=== PATIENT | female | born 1980 | race Caucasian/White ===

== ENCOUNTER 2022-06-18 11:17 | Emergency (ER) | payer BC, SELFPAY ==
[2022-06-18 11:18] VITALS: BP 120/81; PULSE 136; RESP 15; TEMP 36.6; O2SAT 97; BMI 25.8
[2022-06-18 11:21] VITALS: BP 120/80; PULSE 128; RESP 16; TEMP 36.6; O2SAT 98
[2022-06-18 11:56] LABS: Color, Urine Yellow (Yellow); Glucose, Dipstick Normal (Normal); Ketone-Dipstick 5 mg/dl (Negative); Leukocyte Esterase-Dipstick 500 /ul (Negative); Nitrite-Dipstick Negative (Negative); Occult Blood-Urine 50 /ul (Negative); Protein-Dipstick 30 mg/dl (Negative); Specific Gravity, Urine 1.025 (1.002-1.030); Urine Bilirubin Dipstick Negative (Negative); Urine Clarity Clear (Clear); Urine Urobilinogen Normal (Normal)
[2022-06-18 12:08] LABS: Bacteria 1+ /hpf (None Seen); Mucous, Urine 1+ /hpf (<or=2+); Red Blood Cells-Urine 0-5 SEEN /hpf (0-5); Squamous Epithelial Cells - UA 0-5 SEEN /hpf (5-10); White Blood Cells 5-10 SEEN /hpf (0-5)
[2022-06-18 12:09] LABS: Internal QC Validated? YES +Cl - CLEAR BKGD; Pregnancy, Urine Negative Negative
[2022-06-18 12:21] VITALS: BP 118/78; PULSE 125; RESP 16; TEMP 36.6; O2SAT 98
--- NOTE | 2022-06-18 12:31 | CT_ITS ---
STUDY: CT ABDOMEN AND PELVIS WITHOUT CONTRAST REASON FOR EXAM: Female, 42 years old. right flank pain with history of kidney stones. known right ovarian cysts RADIATION DOSAGE (If Supplied By Facility): CTDIvol = ( 7.47 ) mGy, DLP = ( 388.24 ) mGycm TECHNIQUE: Transaxial images were obtained from the dome of the diaphragm to the symphysis pubis without oral contrast, and without intravenous contrast. Sagittal and coronal images were reconstructed. Individualized dose optimization techniques were used for this CT. COMPARISON: None. FINDINGS: The visualized lung bases are unremarkable. The visualized portions of the heart are within normal limits. Normal liver. Normal gallbladder and extrahepatic biliary system. Normal spleen. Normal pancreas. Normal bilateral adrenal glands. A 3.5 mm calyceal stone is present upper pole of the right kidney. There are 2 additional punctate calyceal stones in the right upper pole as well. No hydronephrosis or hydroureter is present. Normal left kidney. Normal visualized stomach. Normal small intestine. Normal colon. The appendix is visualized and appears normal. Normal abdominal aorta. Normal inferior vena cava. Normal retroperitoneum. Normal urinary bladder. Normal visualized uterus. There are 2 moderately enlarged right ovarian follicular cysts measuring 2.47 cm and 3.04 cm respectively. There is a small umbilical hernia containing fat. Unremarkable osseous structures. CT/Abdomen/Pelvis without Cont IMPRESSION: * Several nonobstructing stones of the right kidney * 2 moderately enlarged right ovarian follicular cysts measuring 2.47 cm and 3.04 cm respectively. Electronically Signed: Juan Hale MD at 13:28 EST ,
--- NOTE | 2022-06-18 12:43 | ED.VIS.FEGU ---
HPI HPI - Female History of Present Illness Chief Complaint: Complaint Narrative Narrative: 42-year-old female with recurrent UTIs presenting with concern for UTI. She states that she has had a UTI with sepsis and for and had acute renal failure in the past. She states he also has a history of kidney stones but during this episode she did not have a kidney stone. She states that for a while she was on 50 mg of Macrobid daily which did prevent UTIs. Over the last several weeks she has had recurrent UTI symptoms and has been on multiple antibiotics. She was given regular Macrobid which was not helpful. She was also put on Augmentin but when the urine culture returned she was told to discontinue the Augmentin. Her last treatment was with gentamicin and she states that she was going into her urologist office to get these daily for about 3 days. She states he is here for family matters and is having symptoms but now she is developed flulike symptoms such as body aches, chills. She admits to right flank pain but does not feel like it is a kidney stone. She also states she has bilateral suprapubic pain. She does admit to history of cysts. She does see urologist in [place] where she is from. She states she has had cystoscopy before and it was normal. I do not have reason why she has recurrent UTIs. [facility] Medical History Acute kidney injury Kidney stones Ovarian cyst UTI (urinary tract infection) Home Medications ondansetron 4 mg disintegrating tablet 4 mg PO Q8H PRN nausea and vomiting #14 tabs 06/18/22 [Rx Last Taken Unknown] Allergy/AdvReac Type Severity Reaction Status Date / Time No Known Allergies Allergy Verified 06/18/22 11:21 Social History Smoking Status: Current every day smoker tobacco type: cigarettes ROS ROS ED Constitutional Constitutional ED: Denies chills or fever(s) Eyes Eyes: Denies change in vision or diplopia ENT ENT ED: Denies rhinorrhea or sore throat Cardiovascular Cardiovascular: Denies chest pain or palpitations Respiratory/Chest Respiratory/Chest: Denies cough or dyspnea Gastrointestinal Gastrointestinal: Reports abdominal pain, diarrhea and nausea; Denies constipation or vomiting Genitourinary Genitourinary ED: Reports dysuria and hematuria Musculoskeletal Musculoskeletal: Denies arthralgias Integumentary Denies abscess Neurologic Neurologic: Denies headache(s) or paresthesias Psychiatric Psychiatric: Denies anxiety or depression EXAM Physical Exam Const Vital Signs: 06/18/22 11:18 06/18/22 11:21 06/18/22 12:21 Temperature 97.8 F 98 F 98 F Temperature Source Temporal Temporal Temporal Pulse Rate 136 H 128 H 125 H Respiratory Rate 15 16 16 Blood Pressure 120/81 H 120/80 118/78 Blood Pressure Mean 94 93 91 Pulse Ox 97 98 98 Oxygen Delivery Method Room Air Room Air Room Air Positive well nourished General Appearance ED: NAD; Negative for pallor HEENT Reports moist mucous membranes Eyes PERRL and EOMs intact bilaterally Neck no lymphadenopathy Chest Wall inspection of chest normal and palpation of chest normal Resp normal respiratory effort and clear to auscultation bilaterally Cardio Rate: tachycardic Back/Spine no CVA tenderness Neuro oriented x3 and CN's II-XII intact bilaterally Sensorium / Orientation: alert Motor Exam: strength 5/5 throughout Psych mental status grossly normal Skin no rashes or lesions noted General Skin Exam: Negative for jaundice or pallor MDM MDM MDM Narrative Medical decision making narrative: Patient was able to pull up her urine cultures on her phone. It does look as if she would be sensitive to Augmentin but she was told by urologist she has not. Her urine culture shows resistance to ampicillin, cefazolin, Rocephin, cefuroxime, Levaquin, tetracycline, Bactrim. Her urine would be sensitive to cefepime, ertapenem, gentamicin, imipenem, meropenem, Zosyn, tobramycin. Her urinalysis today shows 5 ketones, 50 occult blood, 500 leukocyte esterase. Negative nitrites. 0-10 WBCs, 0-5 squamous epithelial cells 1+ bacteria. test is normal. Patient also presents with concern that she might have acute kidney injury and had been speaking to her doctor. I will obtain a CBC to assess for an elevated white blood cell count and her hemoglobin levels. I will order a BMP to check her kidney function. Urine was sent for culture. CBC was obtained and her white blood cell count is normal at 7.4. Hemoglobin normal at 14.6. Platelets normal at 268. Renal function and electrolytes within normal limits with exception of a chloride of 108. LFTs are unremarkable. Patient did test positive for COVID-19 today. I did obtain a CT of the abdomen pelvis to make sure there was not any evidence of a kidney stone. This shows nonobstructing stones in the right kidney. Patient states that she had this prior to leaving and had a CT with similar. There are 2 ovarian cysts noted on the right. I spoke with Dr. Morales on-call for Dr. Sanabria of infectious disease. We went over the case at length. We discussed the lab work and a urinalysis. We discussed that he was COVID-positive. He did not think the patient needed to be treated for a UTI given that her symptoms are mostly of a viral syndrome. Again the urine was sent for culture. I feel patient is stable for discharge at this time. All questions were answered. Impression: 1. COVID-19 2. Myalgias 3. History of UTI 4. History of renal failure 5. Nonobstructing calculi 6. Ovarian cysts Lab Data Attestation: I reviewed the patient's lab results. Labs: Laboratory Results - last 24 hr 06/18/22 06/18/22 06/18/22 11:40 12:50 12:50 WBC 7.4 RBC 4.89 Hgb 14.6 Hct 44.0 MCV 90.0 MCH 29.9 MCHC 33.2 RDW Std Deviation 44.1 H RDW Coeff of Sammi 13.6 Plt Count 268 MPV 9.9 Immature Gran % (Auto) 0.400 Neut % (Auto) 63.1 Lymph % (Auto) 17.4 L [place] % (Auto) 18.2 H Eos % (Auto) 0.4 Baso % (Auto) 0.5 Absolute Neuts (auto) 4.6 Absolute Lymphs (auto) 1.28 Nucleated RBC % 0 Sodium 138 Potassium 3.9 Chloride 108 H Carbon Dioxide 25.0 Anion Gap 5 BUN 12 Creatinine 0.87 Estim Creat Clear Calc 80.25 Est GFR (MDRD) Af Amer 91 Est GFR (MDRD) Non-Af 75 BUN/Creatinine Ratio 13.8 Glucose 86 Lactic Acid Calcium 9.1 Total Bilirubin 0.30 AST 14 L ALT 22 Alkaline Phosphatase 72 Total Protein 7.2 Albumin 3.8 Globulin 3.4 Albumin/Globulin Ratio 1.1 Urine Color Yellow Urine Clarity Clear Urine pH 6.0 Ur Specific [place] 1.025 Urine Protein 30 H Urine Glucose (UA) Normal Urine Ketones 5 H Urine Occult Blood 50 H Urine Nitrite Negative Urine Bilirubin Negative Urine Urobilinogen Normal Ur Leukocyte Esterase 500 H Urine RBC 0-5 SEEN Urine WBC 5-10 SEEN Ur Squamous Epith Cells 0-5 SEEN Urine Bacteria 1+ Urine Mucus 1+ Urine Test Negative 06/18/22 12:50 WBC RBC Hgb Hct MCV MCH MCHC RDW Std Deviation RDW Coeff of Sammi Plt Count MPV Immature Gran % (Auto) Neut % (Auto) Lymph % (Auto) [place] % (Auto) Eos % (Auto) Baso % (Auto) Absolute Neuts (auto) Absolute Lymphs (auto) Nucleated RBC % Sodium Potassium Chloride Carbon Dioxide Anion Gap BUN Creatinine Estim Creat Clear Calc Est GFR (MDRD) Af Amer Est GFR (MDRD) Non-Af BUN/Creatinine Ratio Glucose Lactic Acid 1.1 Calcium Total Bilirubin AST ALT Alkaline Phosphatase Total Protein Albumin Globulin Albumin/Globulin Ratio Urine Color Urine Clarity Urine pH Ur Specific [place] Urine Protein Urine Glucose (UA) Urine Ketones Urine Occult Blood Urine Nitrite Urine Bilirubin Urine Urobilinogen Ur Leukocyte Esterase Urine RBC Urine WBC Ur Squamous Epith Cells Urine Bacteria Urine Mucus Urine Test Radiography Diagnostic Testing: Clinical Impression(s) from Imaging Studies Abdomen/Pelvis CT 06/18/22 12:31 IMPRESSION: * Several nonobstructing stones of the right kidney * 2 moderately enlarged right ovarian follicular cysts measuring 2.47 cm and 3.04 cm respectively. Electronically Signed: Juan Hale MD at 13:28 EST Reading Location ID and State: [address] [place] [address] , Service support , Discharge Plan Triage Chief Complaint: Complaint ED Provider: Ismael Burger Dx/Rx/DC Orders Instructions: Coronavirus Disease 2019 (COVID-19): Caring for Yourself or Others Prescriptions: New ondansetron 4 mg tablet,disintegrating 4 mg PO Q8H PRN (Reason: nausea and vomiting) Qty: 14 0RF Primary Care Provider: Care Physician,No Primary Referrals: Care Physician,No Primary [Primary Care Provider] - Disposition Disposition: Home, Self Care
[2022-06-18] MEDS: 0.9% Normal Saline 1,000 ML 1000 ML IV (12:52)
[2022-06-18 13:10] LABS: Absolute Lymphocyte Count 1.28 X10^3/uL (0.83-4.51); Absolute Neutrophil Count 4.6 X10^3/uL (2.0-7.7); Basophil# 0.04 X10^3/uL; Basophil% 0.5 % (0-1); Eosinophil# 0.03 X10^3/uL; Eosinophils% 0.4 % (0-5); Hemoglobin 14.6 g/dL (12.0-15.0); Lymphocyte # 1.28 X10^3/ul (0.83-4.51); Lymphocyte % 17.4 % (19-41); Mean Corp Hgb Conc 33.2 g/dL (32-36); Mean Corpuscular Hgb 29.9 pg (27.0-32.0); Mean Platelet Vol. 9.9 fl (6.2-12.0); Monocyte# 1.34 X10^3/uL; Monocyte% 18.2 % (0-10); NRBC Flagged by Analyzer 0 % (0-5); Neutrophil # 4.64 X10^3/uL (2.7-7.7); Neutrophil % 63.1 % (47-70); Platelet Count 268 K/mm3 (150-450); RBC Distribution Width CV 13.6 % (11.6-14.6); RBC Distribution Width SD 44.1 fl (35.1-43.9); Red Blood Count 4.89 M/mm3 (4.2-5.4); White Blood Count 7.4 K/mm3 (4.4-11.0)
[2022-06-18 13:36] LABS: ALB/GLOB Ratio 1.1 RATIO (0.9-2.4); AST(SGOT) 14 U/L (15-37); Alanine Aminotransfer ALT/SGPT 22 U/L (13-56); Albumin, Serum 3.8 g/dL (3.2-5.0); Alkaline Phosphatase 72 U/L (45-117); Anion Gap 5 (5-15); BUN 12 mg/dL (7-18); BUN/Creat Ratio 13.8 RATIO (10-20); Calcium,Total 9.1 mg/dL (8.5-10.1); Chloride 108 mmol/L (98-107); Creatinine, Serum 0.87 mg/dL (0.55-1.02); EST Glomerular Filtration Rate 75 mL/min (>60); Est Glom Filt Rate - Afr Amer 91 mL/min (>60); Estimated Creatinine Clearance 80.25 ml/min; Globulin 3.4 g/dL (2.2-4.2); Glucose 86 mg/dL (74-106); Potassium 3.9 mmol/L (3.5-5.1); Protein, Total 7.2 g/dL (6.4-8.2); Sodium Level 138 mmol/L (136-145)
[2022-06-18 13:44] LABS: Lactic Acid 1.1 mmol/L (0.4-1.9)
--- NOTE | 2022-06-18 14:02 | NURSING ---
DR RICH ON VACATION. DR PALACIOS IS [employer] 9 [employer]. HAD HIM PAGED
[2022-06-18 15:00] VITALS: BP 120/76; PULSE 99; RESP 18; TEMP 37.1; O2SAT 98
== END 2022-06-18 15:03 | disposition home or self-care (01) ==
PROVIDERS: Emergency Provider Student in an Organized Health Care Education/Training Program; Visit Provider Student in an Organized Health Care Education/Training Program
DX: U07.1 COVID-19 (principal); M79.10 Myalgia, unspecified site; N83.201 Unspecified ovarian cyst, right side; F17.210 Nicotine dependence, cigarettes, uncomplicated
CPT/HCPCS: 36415; 74176; 80053; 81001; 81025; 83605; 85025; 87077; 87086; 87088; 87186; 87428; 96360; 99283; J7030; A4216; J2405

== ENCOUNTER 2022-06-21 15:57 | Emergency (ER) | payer BC, SELFPAY ==
[2022-06-21 15:59] VITALS: BP 125/80; PULSE 92; RESP 14; TEMP 35.9; O2SAT 97; BMI 25.8
[2022-06-21 16:25] VITALS: BP 120/77; PULSE 79; RESP 17; TEMP 25.5; O2SAT 99
--- NOTE | 2022-06-21 16:31 | EDS_ITS ---
HPI History of Present Illness Chief Complaint: Complaint Informant: patient and spouse/S.O. Narrative Narrative: Patient presents with concern for urine infection and right groin pain. This patient has a somewhat complex history. And about a year ago. She was admitted to the hospital with acute kidney injury due to that and had a creatinine of over 4. This did resolve. Since that time she has been on 50 mg of nitrofurantoin daily to try to prevent infection. On April 28 she started with what she describes as typical urinary tract infection symptoms of dysuria and frequency and urgency. She was seen on the . She was placed on Cipro after urine and culture were done. She estimates she was on this for 1 week. She was then called and switched to amoxicillin. She was on that for a couple days. They then called her and said stop the amox icillin and they gave her several days of injections of gentamicin. This did seem to help her symptoms. This brought her to about mid May she estimates. She has then been back on nitrofurantoin at reduced dose daily. She has been in contact and has been seeing her urologist back in [facility]. He wrote for Fosamax but it was not filled because they had to come up here due to the of her [id number]. She was seen here couple days ago for fevers chills and other symptoms. I did review this note. She was found to be COVID-positive. Extensive work-up was done. Urine cultures were sent but she was not treated. That culture did come back as an ESBL E. coli. However, there were only 11-25,000 colony-forming units. Infectious disease physicians were consulted about her symptoms and work-up and felt it was appropriate to hold antibiotics until cultures were obtained. Patient's also been complaining of that right lower pelvic area pain. But this actually started back in early April. She used to get multiple episodes a day. They then increased. It is now a little bit more constant. She thinks it may be ovarian cyst which she knows she has. She also understandably has concerns as her brother in law had pain in that area with a case of necrotizing fasciitis by history. She states she has been feeling hot and cold but has never measured a temperature elevated. Nothing is really making her symptoms better or worse. Patient does have history of the UTIs, ovarian cyst, mild endometriosis. Medications are nitrofurantoin daily. Abdominal surgery positive for diagnostic laparoscopy for endometriosis, lithotripsy and cystoscopy. No anticoagulation. PFSH PFS Medical History Acute kidney injury Kidney stones Ovarian cyst UTI (urinary tract infection) Home Medications ondansetron 4 mg disintegrating tablet 4 mg PO Q8H PRN nausea and vomiting #14 tabs 06/18/22 [Rx Last Taken Unknown] Allergy/AdvReac Type Severity Reaction Status Date / Time No Known Allergies Allergy Verified 06/21/22 15:58 Social History Smoking Status: Current every day smoker tobacco type: cigarettes ROS ROS ED Constitutional Constitutional ED: Reports subjective; Denies fever(s) ENT ENT ED: Reports rhinorrhea; Denies sore throat Cardiovascular Cardiovascular: Denies chest pain Respiratory/Chest Respiratory/Chest: Denies cough Gastrointestinal Gastrointestinal: Denies nausea or vomiting Musculoskeletal Musculoskeletal: Reports myalgias Integumentary Reports other Details: No redness lesions or rash or swelling in the groin right lower quadrant or any other area ; Denies rash Endocrine Endocrinology: Denies polydipsia or polyuria Allergic/Immunologic Allergic/Immunologic ED: Denies urticaria EXAM Physical Exam Narrative Exam Narrative: Patient awake alert and nontoxic in appearance. HEENT shows no erythema or trauma. No JVD. No meningismus. Heart is regular. Lungs are clear bilaterally. No pain with a deep breath. Abdomen is overall benign. There is a slight amount of discomfort with pressing in the right lower quadrant. But no rebound or guarding. No CVA tenderness. She states when I tap on the right she feels a little pressure but it does not hurt. No pain with motion of her hip or leg at all. I looked at the skin in that area and there is no erythema warmth swelling or mass. She has only a small amount of tenderness in all of that is above the inguinal ligament not below. No peripheral edema. No rashes distally. Const Vital Signs: 06/21/22 15:59 06/21/22 16:25 Temperature 96.6 F L 78 F L Temperature Source Temporal Temporal Pulse Rate 92 79 Respiratory Rate 14 17 Blood Pressure 125/80 H 120/77 Blood Pressure Mean 95 91 Pulse Ox 97 99 Oxygen Delivery Method Room Air Room Air MDM MDM MDM Narrative Medical decision making narrative: We did blood work on this patient due to her complex history, history of renal failure with kidney stones. Her white count is normal. Hemoglobin is minimally up which is nonspecific. Platelets are normal. Electrolytes are normal other than mild elevation of glucose at 132. Lactic acid is normal. LFTs are normal. Urine was a little bit cloudy but when I looked at it on the counter it looked very clear and yellow to me. She did have 5-10 white cells. There is no convincing evidence of UTI but the patient has symptoms and is on Macrobid now. I reviewed CT scan that was done 2 days ago. I had a long talk with the patient. She has been in conversation with her urologist back in [place]. He wanted to start fosfomycin. She has a prescription waiting for her back in [place] but she will not be back there until Saturday. I explained that we can get her a dose here. She would then have a repeat dose on Saturday and then 3 days later. She will follow-up with her urologist. She is very happy with this plan. I did do an independent evaluation and review of the imaging done 2 days ago. My independent interpretation of the CT does show ovarian cyst. But there is no significant hydro-. Bowel looks normal. I see no subcutaneous streaking in the soft tissue. Lab Data Attestation: I reviewed the patient's lab results. Labs: Laboratory Results - last 24 hr 06/21/22 06/21/22 06/21/22 16:27 16:27 16:27 WBC 5.0 RBC 5.15 Hgb 15.1 H Hct 45.8 MCV 88.9 MCH 29.3 MCHC 33.0 RDW Std Deviation 43.8 RDW Coeff of Sammi 13.4 Plt Count 265 MPV 10.1 Immature Gran % (Auto) 0.200 Neut % (Auto) 48.4 Lymph % (Auto) 37.6 [place] % (Auto) 11.6 H Eos % (Auto) 1.8 Baso % (Auto) 0.4 Absolute Neuts (auto) 2.4 Absolute Lymphs (auto) 1.89 Nucleated RBC % 0 Sodium 139 Potassium 3.6 Chloride 110 H Carbon Dioxide 24.0 Anion Gap 5 BUN 13 Creatinine 0.70 Estim Creat Clear Calc 99.73 Est GFR (MDRD) Af Amer 116 Est GFR (MDRD) Non-Af 96 BUN/Creatinine Ratio 18.4 Glucose 132 H Lactic Acid 1.3 Calcium 9.1 Total Bilirubin 0.40 AST 15 ALT 21 Alkaline Phosphatase 74 Total Protein 7.6 Albumin 3.7 Globulin 3.9 Albumin/Globulin Ratio 0.9 Urine Color Urine Clarity Urine pH Ur Specific [place] Urine Protein Urine Glucose (UA) Urine Ketones Urine Occult Blood Urine Nitrite Urine Bilirubin Urine Urobilinogen Ur Leukocyte Esterase Urine RBC Urine WBC Ur Squamous Epith Cells Urine Bacteria Urine Mucus 06/21/22 16:57 WBC RBC Hgb Hct MCV MCH MCHC RDW Std Deviation RDW Coeff of Sammi Plt Count MPV Immature Gran % (Auto) Neut % (Auto) Lymph % (Auto) [place] % (Auto) Eos % (Auto) Baso % (Auto) Absolute Neuts (auto) Absolute Lymphs (auto) Nucleated RBC % Sodium Potassium Chloride Carbon Dioxide Anion Gap BUN Creatinine Estim Creat Clear Calc Est GFR (MDRD) Af Amer Est GFR (MDRD) Non-Af BUN/Creatinine Ratio Glucose Lactic Acid Calcium Total Bilirubin AST ALT Alkaline Phosphatase Total Protein Albumin Globulin Albumin/Globulin Ratio Urine Color Straw Urine Clarity Sl. Cloudy Urine pH 6.0 Ur Specific [place] 1.025 Urine Protein Negative Urine Glucose (UA) Normal Urine Ketones Negative Urine Occult Blood 25 H Urine Nitrite Negative Urine Bilirubin Negative Urine Urobilinogen Normal Ur Leukocyte Esterase 100 H Urine RBC 0-5 SEEN Urine WBC 5-10 SEEN Ur Squamous Epith Cells 0-5 SEEN Urine Bacteria 2+ Urine Mucus 0 SEEN Discharge Plan Triage Chief Complaint: Complaint ED Provider: Kiran Paige Dx/Rx/DC Orders Clinical Impression: UTI (urinary tract infection) Instructions: UTIs Women Prescriptions: No Action ondansetron 4 mg tablet,disintegrating 4 mg PO Q8H PRN (Reason: nausea and vomiting) Qty: 14 0RF Primary Care Provider: Care Physician,No Primary Referrals: Care Physician,No Primary [Primary Care Provider] - Activity Restrictions/Additional Instructions: See your urologist as scheduled when you get back in [place] this week. Disposition Disposition: Home, Self Care
[2022-06-21 16:46] LABS: Absolute Lymphocyte Count 1.89 X10^3/uL (0.83-4.51); Absolute Neutrophil Count 2.4 X10^3/uL (2.0-7.7); Basophil# 0.02 X10^3/uL; Basophil% 0.4 % (0-1); Eosinophil# 0.09 X10^3/uL; Eosinophils% 1.8 % (0-5); Hematocrit 45.8 % (37-47); Hemoglobin 15.1 g/dL (12.0-15.0); Lymphocyte # 1.89 X10^3/ul (0.83-4.51); Lymphocyte % 37.6 % (19-41); Mean Corpuscular Hgb 29.3 pg (27.0-32.0); Mean Corpuscular Volume 88.9 fL (81-99); Mean Platelet Vol. 10.1 fl (6.2-12.0); Monocyte# 0.58 X10^3/uL; Monocyte% 11.6 % (0-10); NRBC Flagged by Analyzer 0 % (0-5); Neutrophil # 2.43 X10^3/uL (2.7-7.7); Neutrophil % 48.4 % (47-70); Platelet Count 265 K/mm3 (150-450); RBC Distribution Width CV 13.4 % (11.6-14.6); RBC Distribution Width SD 43.8 fl (35.1-43.9); Red Blood Count 5.15 M/mm3 (4.2-5.4)
[2022-06-21 16:57] LABS: Lactic Acid 1.3 mmol/L (0.4-1.9)
[2022-06-21 16:58] LABS: ALB/GLOB Ratio 0.9 RATIO (0.9-2.4); AST(SGOT) 15 U/L (15-37); Alanine Aminotransfer ALT/SGPT 21 U/L (13-56); Albumin, Serum 3.7 g/dL (3.2-5.0); Alkaline Phosphatase 74 U/L (45-117); Anion Gap 5 (5-15); BUN 13 mg/dL (7-18); BUN/Creat Ratio 18.4 RATIO (10-20); Calcium,Total 9.1 mg/dL (8.5-10.1); Chloride 110 mmol/L (98-107); EST Glomerular Filtration Rate 96 mL/min (>60); Est Glom Filt Rate - Afr Amer 116 mL/min (>60); Estimated Creatinine Clearance 99.73 ml/min; Globulin 3.9 g/dL (2.2-4.2); Glucose 132 mg/dL (74-106); Potassium 3.6 mmol/L (3.5-5.1); Protein, Total 7.6 g/dL (6.4-8.2); Sodium Level 139 mmol/L (136-145)
[2022-06-21 18:12] LABS: Mucous, Urine 0 SEEN /hpf (<or=2+)
[2022-06-21 18:35] LABS: Color, Urine Straw (Yellow); Glucose, Dipstick Normal (Normal); Ketone-Dipstick Negative (Negative); Leukocyte Esterase-Dipstick 100 /ul (Negative); Nitrite-Dipstick Negative (Negative); Occult Blood-Urine 25 /ul (Negative); Protein-Dipstick Negative (Negative); Specific Gravity, Urine 1.025 (1.002-1.030); Urine Bilirubin Dipstick Negative (Negative); Urine Clarity Sl. Cloudy (Clear); Urine Urobilinogen Normal (Normal)
[2022-06-21 19:16] LABS: Bacteria 2+ /hpf (None Seen); Red Blood Cells-Urine 0-5 SEEN /hpf (0-5); Squamous Epithelial Cells - UA 0-5 SEEN /hpf (5-10)
[2022-06-21 19:17] LABS: White Blood Cells 5-10 SEEN /hpf (0-5)
[2022-06-21] MEDS: FOSFOMYCIN TROMETHAMINE 3 GM PACKET PO (20:33)
[2022-06-21 20:34] VITALS: PULSE 75; RESP 15; O2SAT 97
== END 2022-06-21 20:34 | disposition home or self-care (01) ==
PROVIDERS: Emergency Provider Emergency Medicine; Visit Provider Emergency Medicine
DX: N39.0 Urinary tract infection, site not specified (principal); N17.9 Acute kidney failure, unspecified; U07.1 COVID-19; F17.210 Nicotine dependence, cigarettes, uncomplicated; R10.2 Pelvic and perineal pain
CPT/HCPCS: 80053; 81001; 83605; 85025; 87040; 87086; 87088; 99284; A4216